=== PATIENT | male | born 1945 | race Caucasian/White ===

== ENCOUNTER 2018-03-10 08:33 | Emergency (ER) | payer MEDICARE, MEDICAID ==
[~2018-03-10] VITALS: Ht 182.9 cm; Wt 86.4 kg
[2018-03-10] MEDS ORDERED: NO HOME MEDS (08:57)
[2018-03-10 09:55] VITALS: BP 132/66
== END 2018-03-10 09:58 | disposition home or self-care (01) ==
LOC: ER 08:33
DX: M79.89 Other specified soft tissue disorders (principal); M79.661 Pain in right lower leg
CPT/HCPCS: 93971; 99284